=== PATIENT | female | born 1985 | race Caucasian/White ===

== ENCOUNTER 2017-02-25 22:37 | Emergency (ER) | payer BC ==
[~2017-02-25] VITALS: Ht 165.1 cm; Wt 113.4 kg
[2017-02-25 23:12] VITALS: BP 120/90
--- NOTE | 2017-02-25 23:13 | PHYS DOC ---
Past History Past Medical History prior ear infections Smoking: Non-smoker Adult General Chief Complaint Chief Complaint: EARACHE/EAR PAIN HPI HPI Patient is a 31 year old female who presents with persistent right ear pain, headache and nausea. She was diagnosed with an ear infection earlier and seen at [facility]. She was placed on amoxicillin "but that never works for me" . She has increased pain to the right ear; headache and now her right eye is "blurry". NO loss of vision or true double vision (she reported double vision initially to RN but in fact it is blurry; not true double). Some nausea; no cough. Review of Systems Review of Systems Constitutional: Denies fever or chills [] Eyes: Denies change in visual acuity, redness, or eye pain [] HENT: Denies nasal congestion or sore throat [] Respiratory: Denies cough or shortness of breath [] Cardiovascular: No additional information not addressed in HPI [] GI: Denies abdominal pain, nausea, vomiting, bloody stools or diarrhea [] : Denies dysuria or hematuria [] Musculoskeletal: Denies back pain or joint pain [] Integument: Denies rash or skin lesions [] Neurologic: Denies headache, focal weakness or sensory changes [] Endocrine: Denies polyuria or polydipsia [] Physical Exam Physical Exam Constitutional: Well developed, well nourished, no acute distress, non-toxic appearance. HENT: Normocephalic, atraumatic, bilateral external ears normal, Right TM dull with erythema (no bullae); left TM cleasr. oropharynx moist, no oral exudates, nose normal. No swelling of parotid gland. Eyes: PERRLA, EOMI, conjunctiva normal, no discharge. Neck: Normal range of motion, no tenderness, supple, no stridor. Cardiovascular:Heart rate regular rhythm, no murmur Lungs & Thorax: Bilateral breath sounds clear to auscultation Abdomen: Bowel sounds normal, soft, no tenderness, no masses, no pulsatile masses. Skin: Warm, dry, no erythema, no rash. Back: No tenderness, no CVA tenderness. Extremities: No tenderness, no cyanosis, no clubbing, ROM intact, no edema. Neurologic: Alert and oriented X 3, normal motor function, normal sensory function, no focal deficits noted. Psychologic: Affect normal, judgement normal, mood normal. Current Patient Data Vital Signs Vital Signs Date Time Temp Pulse Resp B/P (MAP) Pulse Ox O2 Delivery O2 Flow Rate FiO2 02/25/17 23:12 98.0 79 20 Room Air BP 120/90 Course & Med Decision Making Course & Med Decision Making Patient with worsening otitis media. She requested Azithromax and ear drops. Dosed here with Toradol IM; Decadron IM, zofran; azithromax and rx for floxin otic and naprosyn. She is to f/u with ENT. NO evidence of zoster. Dragon Disclaimer Dragon Disclaimer This chart was dictated in whole or in part using Voice Recognition software in a busy, high-work load, and often noisy Emergency Department environment. It may contain unintended and wholly unrecognized errors or omissions. Departure Departure: Disposition: 01 HOME, SELF-CARE Condition: GOOD Scripts Ofloxacin (Floxin) 10 Ml Drops 10 ML OT BID for 7 Days, DROP Prov: HEBER BUCKNER MD 02/25/17 Methylprednisolone (MEDROL) 4 Mg Tab.ds.pk 1 PKG PO UD, #1 PKG Prov: HEBER BUCKNER MD 02/25/17 Azithromycin (AZITHROMYCIN TABLET) 250 Mg Tablet 250 MG PO DAILY for ANTI-BIOTIC for 4 Days, #4 TAB 0 Refills Prov: HEBER BUCKNER MD 02/25/17 Ondansetron (ZOFRAN ODT) 8 Mg Tab.rapdis 8 MG PO TID PRN, #10 Prov: HEBER BUCKNER MD 02/25/17 HEBER BUCKNER MD February 25, 2017 23:13
[2017-02-25] MEDS ORDERED: ONDANSETRON ODT 4 MG TAB.RAPDIS PO ONE (23:15)
[2017-02-25] MEDS ORDERED: DEXAMETHASONE SOD PHOS 10 MG/ML VIAL IM ONE (23:15)
[2017-02-25] MEDS ORDERED: AZITHROMYCIN 250 MG TABLET. PO ONE (23:15)
[2017-02-25] MEDS ORDERED: KETOROLAC 60 MG/2 ML VIAL. IM ONE ×2 (23:15→23:26)
[2017-02-25] MEDS ORDERED: AZIT250T6 PO (23:16)
[2017-02-25] MEDS ORDERED: ONDA8TAB12 PO (23:16)
[2017-02-25] MEDS ORDERED: METH4TAB2 PO (23:16)
[2017-02-25] MEDS ORDERED: OFLO10DR21 OT (23:18)
[2017-02-25] MEDS ORDERED: DEXAMETHASONE SOD PHOS 10 MG/ML VIAL ONE (23:25)
[2017-02-25] MEDS ORDERED: AZITHROMYCIN 250 MG TABLET. ONE (23:26)
[2017-02-25] MEDS ORDERED: ONDANSETRON ODT 4 MG TAB.RAPDIS ONE (23:26)
== END 2017-02-25 23:35 | disposition home or self-care (01) ==
LOC: ER 22:37
DX: H66.91 Otitis media, unspecified, right ear (principal); R51 Headache; R11.0 Nausea
CPT/HCPCS: 96372; 99284; J0456; J1100; J1885; Q0162

== ENCOUNTER 2017-05-29 10:30 | Emergency (ER) | payer BC ==
[~2017-05-29] VITALS: Ht 165.1 cm; Wt 113.4 kg
[~2017-05-29 10:30] MED LIST: AZIT250T6 PO; METH4TAB2 PO; OFLO10DR21 OT; ONDA8TAB12 PO
[2017-05-29] MEDS ORDERED: IV NORMAL SALINE 1,000ML 1,000 ML IV SCH (10:52)
--- NOTE | 2017-05-29 10:58 | ED.ADGEN ---
Past History Past Medical History: No Pertinent History Past Surgical History: Smoking: Non-smoker Alcohol Use: None Drug Use: None Adult General HPI HPI Patient is a 31-year-old woman, history of PCOS, who presents to the emergency department with a complaint of sudden onset of dizziness, nausea, and vomiting . Patient denies abdominal pain or inciting symptoms, denies any sick contacts or travel. She states that she was feeling fine this morning, when about an hour ago she suddenly became extremely sick to her stomach, and has since vomited twice. Food and fluid, denies any diarrhea, any focal weakness, numbness , tingling, chest pain, shortness of breath. She is not taking anything for this prior to come to the ED. She describes dizziness as being more of a lightheadedness, or she feels like she might pass out but is had no syncopal be. Denies any swelling of the extremities, any rashes, any urinary complaints, although she states she has been experiencing low back pain since this started. It is equal on both sides, denies any injury. Review of Systems Review of Systems Constitutional: Denies fever or chills [] generalized malaise. Eyes: Denies change in visual acuity, redness, or eye pain [] HENT: Denies nasal congestion or sore throat [] Respiratory: Denies cough or shortness of breath [] Cardiovascular: No additional information not addressed in HPI [] GI: Denies abdominal pain, complaining of nausea, vomiting, no bloody stools or diarrhea. Last bowel was this morning and was normal. : Denies dysuria or hematuria [] Musculoskeletal: Lower back achiness, no joint pain. Integument: Denies rash or skin lesions [] Neurologic: Denies headache, focal weakness or sensory changes [] Endocrine: Denies polyuria or polydipsia [] Current Medications Current Medications Current Medications Medications (Trade) Dose Ordered Sig/[facility] Start Time Stop Time Status Last Admin Dose Admin Acetaminophen (Tylenol) 1,000 mg 1X ONCE 05/29/17 13:00 05/29/17 13:01 DC Ketorolac Tromethamine (Toradol) 10 mg 1X ONCE 05/29/17 13:00 05/29/17 13:01 DC Ondansetron HCl (Zofran) 4 mg 1X ONCE 05/29/17 11:20 05/29/17 11:21 DC 05/29/17 11:20 4 MG Sodium Chloride 1,000 ml @ 1,000 mls/hr Q1H 05/29/17 10:52 05/29/17 11:51 DC 05/29/17 11:15 1,000 MLS/HR Allergies Allergies Allergies Coded Allergies Type Severity Reaction Last Updated Verified hydrocodone Allergy Unknown Nausea and Vomiting 02/25/17 Yes Physical Exam Physical Exam Constitutional: Well developed, well nourished, no acute distress, pale, non- toxic appearance. [] HENT: Normocephalic, atraumatic, bilateral external ears normal, oropharynx moist, no oral exudates, nose normal. [] Eyes: PERRLA, EOMI, conjunctiva normal, no discharge. [] Neck: Normal range of motion, no tenderness, supple, no stridor. [] Cardiovascular:Heart rate regular rhythm, no murmur, S1, S2, no rubs or gallops. [] Lungs & Thorax: Bilateral breath sounds clear to auscultation, no wheezing, rhonchi, rales. No chest or crepitus or tenderness. [] Abdomen: Bowel sounds normal, soft, no tenderness, no rebound, rigidity, no guarding, no masses, no pulsatile masses. [] Skin: Warm, dry, no erythema, pale, no rash. [] Back: No tenderness, no CVA tenderness. [] Extremities: No tenderness, no cyanosis, no clubbing, ROM intact, no edema. Negative Homans sign. Neurologic: Alert and oriented X 3, normal motor function, normal sensory function, no focal deficits noted. [] Psychologic: Affect normal, judgement normal, mood normal. [] Current Patient Data Vital Signs Vital Signs Date Time Temp Pulse Resp B/P (MAP) Pulse Ox O2 Delivery O2 Flow Rate FiO2 05/29/17 12:40 97.9 76 18 135/71 (92) 99 Room Air Lab Results Laboratory Tests Test 05/29/17 10:55 05/29/17 11:13 05/29/17 11:15 Urine Collection Type Unknown Urine Color Alda Urine Clarity Hazy Urine pH 7.5 Urine Specific Worley 1.015 Urine Protein Neg (NEG-TRACE) Urine Glucose (UA) Neg mg/dL (NEG) Urine Ketones (Stick) Neg mg/dL (NEG) Urine Blood Trace (NEG) Urine Nitrite Neg (NEG) Urine Bilirubin Neg (NEG) Urine Urobilinogen Dipstick 0.2 mg/dL (0.2 mg/dL) Urine Leukocyte Esterase Neg (NEG) Urine RBC 1-2 /HPF (0-2) Urine WBC Occ /HPF (0-4) Urine Squamous Epithelial Cells Few /LPF Urine Bacteria Few /HPF (0-FEW) Urine Mucus Slight /LPF POC Urine HCG, Qualitative hcg negative (Negative) White Blood Count 8.0 x10^3/uL (4.0-11.0) Red Blood Count 5.31 x10^6/uL (3.50-5.40) Hemoglobin 14.8 g/dL (12.0-15.5) Hematocrit 44.0 % (36.0-47.0) Mean Corpuscular Volume 83 fL (79-100) Mean Corpuscular Hemoglobin 28 pg (25-35) Mean Corpuscular Hemoglobin Concent 34 g/dL (31-37) Red Cell Distribution Width 13.1 % (11.5-14.5) Platelet Count 281 x10^3/uL (140-400) Neutrophils (%) (Auto) 68 % (31-73) Lymphocytes (%) (Auto) 25 % (24-48) Monocytes (%) (Auto) 5 % (0-9) Eosinophils (%) (Auto) 1 % (0-3) Basophils (%) (Auto) 1 % (0-3) Neutrophils # (Auto) 5.5 x10^3uL (1.8-7.7) Lymphocytes # (Auto) 2.0 x10^3/uL (1.0-4.8) Monocytes # (Auto) 0.4 x10^3/uL (0.0-1.1) Eosinophils # (Auto) 0.1 x10^3/uL (0.0-0.7) Basophils # (Auto) 0.0 x10^3/uL (0.0-0.2) Sodium Level 143 mmol/L (136-145) Potassium Level 4.3 mmol/L (3.5-5.1) Chloride Level 107 mmol/L (98-107) Carbon Dioxide Level 29 mmol/L (21-32) Anion Gap 7 (6-14) Blood Urea Nitrogen 8 mg/dL (7-20) Creatinine 0.7 mg/dL (0.6-1.0) Estimated GFR (Cockcroft-Gault) 97.0 BUN/Creatinine Ratio 11 (6-20) Glucose Level 98 mg/dL (70-99) Calcium Level 8.6 mg/dL (8.5-10.1) Total Bilirubin 0.3 mg/dL (0.2-1.0) Aspartate Amino Transferase (AST) 16 U/L (15-37) Alanine Aminotransferase (ALT) 33 U/L (14-59) Alkaline Phosphatase 72 U/L (46-116) Total Protein 7.5 g/dL (6.4-8.2) Albumin 3.7 g/dL (3.4-5.0) Albumin/Globulin Ratio 1.0 (1.0-1.7) Lipase 167 U/L (73-393) EKG EKG EC: Sinus rhythm, heart rate 63 beats/minute, upright axis, QTC of 414, CT 142, QRS of 82, no ST elevations or depressions, no evidence of acute ST abnormalities. As interpreted by me. Radiology/Procedures Radiology/Procedures Not indicated. [] Course & Med Decision Making Course & Med Decision Making Pertinent Labs and Imaging studies reviewed. (See chart for details) Patient appears on comfortable, with pallor, nausea in the ED. Received IV fluids, antiemetics, and pain medication including Toradol and Tylenol. Nausea resolved after administration of Zofran, no further vomiting in the ED. Patient did develop a complaint of headache in the ED, and back pain as stated, both of which were improved significantly after administration of medications and IV fluids as stated. Laboratory studies not reveal any concerning findings, urinalysis was unremarkable. I did discuss findings with patient on reevaluation , patient is feeling better, and is rated go home, discussed use of Zofran, liquid diet to be advanced as tolerated, Bentyl as needed, as the patient may be experiencing a viral illness. Patient states that she is still having some headache, and believes that "I might be getting a migraine", at this time is agreeable plan to go home, to rest, to continue recommendations medications as stated, will return to the ED if any new or concerning symptoms develop. Patient ambulating without difficulty in the ED, exiting the ED with significant other. Final Impression Final Impression [] Problems: Kailash Disclaimer Dragon Disclaimer This electronic medical record was generated, in whole or in part, using a voice recognition dictation system. Departure: Impression: Primary Impression: Nausea and vomiting Disposition: HOME, SELF-CARE Condition: IMPROVED Scripts Dicyclomine Hcl (BENTYL) 10 Mg Capsule 1 CAP PO PRN TID Y for ABD CRAMPING, #12 CAP 0 Refills Prov: ODILIA CERVANTES DO 05/29/17 Ondansetron Hcl (ZOFRAN) 4 Mg Tablet 4 MG PO PRN Q6-8HRS Y for NAUSEA, #12 Prov: ODILIA CERVANTES DO 05/29/17 ODILIA CERVANTES DO May 29, 2017 10:58
[2017-05-29] MEDS ORDERED: ONDANSETRON PF 4 MG/2 ML VIAL. IV ONE (11:20)
[2017-05-29 11:23] LABS: BACTERIA,URINE FEW /HPF (0-FEW); BILIRUBIN,URINE NEG (NEG); CLARITY,URINE HAZY; COLOR,URINE AMBER; GLUCOSE,URINE NEG (NEG); NITRITE,URINE NEG (NEG); SQUAMOUS EPITHELIAL CELL,UR FEW /LPF; UROBILINOGEN,URINE 0.2 mg/dL (0.2 mg/dL); WBC,URINE OCC /HPF (0-4)
[2017-05-29 11:31] LABS: BASO % 1 % (0-3); EOS # 0.1 x10^3/uL (0.0-0.7); EOS % 1 % (0-3); HEMOGLOBIN 14.8 g/dL (12.0-15.5); LYMPH % 25 % (24-48); MEAN CORPUSCULAR HEMOGLOBIN 28 pg (25-35); MEAN CORPUSCULAR HGB CONC 34 g/dL (31-37); MEAN CORPUSCULAR VOLUME 83 fL (79-100); MONO # 0.4 x10^3/uL (0.0-1.1); MONO % 5 % (0-9); NEUT # 5.5 x10^3uL (1.8-7.7); NEUT % 68 % (31-73); PLATELET COUNT 281 x10^3/uL (140-400); RED BLOOD COUNT 5.31 x10^6/uL (3.50-5.40); RED CELL DISTRIBUTION WIDTH 13.1 % (11.5-14.5)
--- NOTE | 2017-05-29 11:35 | EKG ---
[address] [address] Test Date: 2017-05-29 Test Time: 11:04:54 Pat Name: ORA TSAI Department: Room: Gender: F Teradata Developer: ASTON : 1985 Requested By: ODILIA CERVANTES Order Number: [id number] Reading MD: Measurements Intervals Boley Rate: 63 P: 23 MO: 142 QRS: 13 QRSD: 92 T: 20 QT: 402 QTc: 414 Interpretive Statements SINUS RHYTHM QRS(T) CONTOUR ABNORMALITY CONSIDER ANTEROSEPTAL MYOCARDIAL DAMAGE RI6.01 Unconfirmed report No previous ECG available for comparison
[2017-05-29 11:45] LABS: ALBUMIN 3.7 g/dL (3.4-5.0); CALCIUM 8.6 mg/dL (8.5-10.1); CREATININE 0.7 mg/dL (0.6-1.0); POTASSIUM 4.3 mmol/L (3.5-5.1); TOTAL BILIRUBIN 0.3 mg/dL (0.2-1.0); TOTAL PROTEIN 7.5 g/dL (6.4-8.2)
[2017-05-29] MEDS ORDERED: KETOROLAC 30 MG/ML VIAL. IV ONE (13:00)
[2017-05-29] MEDS ORDERED: ACETAMINOPHEN 500 MG TABLET PO ONE (13:00)
[2017-05-29] MEDS ORDERED: ONDA4TAB7 PO (13:08)
[2017-05-29] MEDS ORDERED: DICY10CA53 PO (13:08)
[2017-05-29 13:10] VITALS: BP 130/59
== END 2017-05-29 13:20 | disposition home or self-care (01) ==
LOC: ER 10:30
DX: R11.2 Nausea with vomiting, unspecified (principal); R42 Dizziness and giddiness; M54.5 Low back pain
CPT/HCPCS: 36415; 80053; 81001; 81025; 83690; 85025; 93005; 96361; 96374; 96375; 99285; J1885; J2405; J7030

== ENCOUNTER 2017-09-18 19:23 | Emergency (ER) | payer BC ==
[~2017-09-18] VITALS: Ht 165.1 cm; Wt 117.9 kg
[~2017-09-18 19:23] MED LIST changes: +DICY10CA53 PO; +ONDA4TAB7 PO
[2017-09-18 19:52] VITALS: BP 141/83
[2017-09-18] MEDS ORDERED: KETOROLAC 30 MG/ML VIAL. IV ONE (20:15)
[2017-09-18 20:45] LABS: BASO # 0.1 x10^3/uL (0.0-0.2); BASO % 1 % (0-3); EOS # 0.2 x10^3/uL (0.0-0.7); EOS % 2 % (0-3); HEMATOCRIT 40.7 % (36.0-47.0); HEMOGLOBIN 13.7 g/dL (12.0-15.5); LYMPH # 3.1 x10^3/uL (1.0-4.8); LYMPH % 33 % (24-48); MEAN CORPUSCULAR HEMOGLOBIN 28 pg (25-35); MEAN CORPUSCULAR HGB CONC 34 g/dL (31-37); MEAN CORPUSCULAR VOLUME 82 fL (79-100); MONO # 0.4 x10^3/uL (0.0-1.1); MONO % 4 % (0-9); NEUT # 5.8 x10^3uL (1.8-7.7); NEUT % 61 % (31-73); PLATELET COUNT 281 x10^3/uL (140-400); RED BLOOD COUNT 4.95 x10^6/uL (3.50-5.40); WHITE BLOOD COUNT 9.5 x10^3/uL (4.0-11.0)
[2017-09-18] MEDS ORDERED: MORPHINE SULFATE 5 MG/ML SYRINGE. ONE (21:50)
[2017-09-18] MEDS ORDERED: MORPHINE SULFATE 5 MG/ML SYRINGE. IV ONE (22:00)
--- NOTE | 2017-09-18 22:51 | RAD ---
Ultrasound pelvis complete 09/18/2017 CLINICAL INDICATION: Dysfunctional uterine bleeding. COMPARISON: None. TECHNIQUE: Transabdominal and transvaginal images were performed. FINDINGS: There are multiple cervical nabothian cysts. Uterus measures 10.2 x 4.1 x 5.0 cm. No discrete myometrial mass lesion identified. Dual thickness endometrium is 15 mm. No abnormal endometrial blood flow identified. The right ovary measures 2.9 x 3.5 x 2.7 cm. Normal color Doppler imaging of the right ovary. The left ovary measures 3.5 x 2.4 x 2.8 cm with normal color Doppler imaging. There is no significant pelvic free fluid. IMPRESSION: 1. Upper limits of normal endometrial thickening, which may be due to phase of menstrual cycle. Follow-up ultrasound is recommended. 2. No ovarian torsion. Electronically signed by: George Bailey MD (09/18/2017 10:48 PM) [facility]
--- NOTE | 2017-09-18 23:01 | PHYS DOC ---
General Chief Complaint: VAGINAL PROBLEM Stated Complaint: VAGINAL BLEEDING Time Seen by MD: 19:26 Source: patient Exam Limitations: no limitations Problems: History of Present Illness Initial Comments Patient is a 31-year-old female complaining of vaginal bleeding. Patient states that her current menstrual period started August 18, states she' s been bleeding fairly consistently since that time. She states she is having lower abdominal and low back cramping, earlier today she says she had a headache and dizzy spell. She's been feeling weak she says her periods are normally regular and not nearly as intense. She denies any trauma denies possibility of she is accompanied by her spouse. She states she's been passing large clots and soaking through her pads going through to an hour earlier today however has slowed down on arrival. ED vital signs are stable Timing/Duration: other Severity: severe Modifying Factors: improves with other Associated Symptoms: other Allergies: Coded Allergies: hydrocodone (Verified Allergy, Mild, Nausea and Vomiting, 09/18/17) Past Medical History Medical History: other (polycystic ovarian syndrome, migraines) Surgical History: other (herniorrhaphy) Social History Smoker: non-smoker Alcohol: none Drugs: none Review of Systems Constitutional: denies chills, denies diaphoresis, denies fever, malaise, weakness Respiratory: denies cough, denies shortness of breath, denies wheezing Cardiovascular: denies chest pain, denies palpitations, denies syncope Gastrointestinal: see HPI, denies diarrhea, denies nausea, denies vomiting Genitourinary: see HPI, denies dysuria, denies frequency, denies hematuria Musculoskeletal: see HPI, denies joint swelling, denies neck pain Psychiatric/Neurological: see HPI Hematologic/Lymphatic: see HPI Physical Exam General Appearance: mild distress, obese Eyes: bilateral eye normal inspection, bilateral eye PERRL, bilateral eye EOMI Ear, Nose, Throat: hearing grossly normal, normal ENT inspection, normal pharynx Neck: non-tender, supple Respiratory: normal breath sounds, no respiratory distress Cardiovascular: normal peripheral pulses, regular rate, rhythm Gastrointestinal: normal bowel sounds, non tender, soft Back: no CVA tenderness, no vertebral tenderness Extremities: non-tender Neurologic/Psychiatric: avionics manager II-XII nml as tested, no motor/sensory deficits, alert, normal mood/affect, oriented x 3 Skin: normal color, warm/dry Orders, Labs, Meds PATIENT: ORA TSAI ACCOUNT: [id number] : 1985 LOCATION: ER AGE: 31 SEX: F EXAM STATUS: REG ER ORD. PHYSICIAN: KAYDEN JULES DO REASON: PCOS, having DUB PROCEDURE: PELVIS COMPLETE Ultrasound pelvis complete 09/18/2017 CLINICAL INDICATION: Dysfunctional uterine bleeding. COMPARISON: None. TECHNIQUE: Transabdominal and transvaginal images were performed. FINDINGS: There are multiple cervical nabothian cysts. Uterus measures 10.2 x 4.1 x 5.0 cm. No discrete myometrial mass lesion identified. Dual thickness endometrium is 15 mm. No abnormal endometrial blood flow identified. The right ovary measures 2.9 x 3.5 x 2.7 cm. Normal color Doppler imaging of the right ovary. The left ovary measures 3.5 x 2.4 x 2.8 cm with normal color Doppler imaging. There is no significant pelvic free fluid. IMPRESSION: 1. Upper limits of normal endometrial thickening, which may be due to phase of menstrual cycle. Follow-up ultrasound is recommended. 2. No ovarian torsion. Electronically signed by: Ty Bailey MD (09/18/2017 10:48 PM) [facility] DICTATED AND SIGNED BY: TY BAILEY MD DATE: 09/18/172242 CC: PCP,BERTRAND; KAYDEN JULES DO ~ Hemoglobin stable. I discussed findings with the patient as well as treatment options. It is at this point that the patient states she called her network control technician and talked to the on-call doctor. She had previously reported that she had not been able to reach them, she reveals that control has been called in for her to start tomorrow she was advised to take 3 tomorrow and then 1 daily. I discussed signs and symptoms to monitor as well as indications for urgent return, advised her to follow her doctor's instructions she expressed agreement and understanding with treatment plan. Departure Time of Disposition: 23:09 Disposition: 01 HOME, SELF-CARE Diagnosis: menorrhagia Condition: STABLE Patient Instructions: Menorrhagia, [id number] Additional Instructions: No driving or operating machinery while under the influence of sedative medications. Start taking the control tomorrow which was called in by your network control technician to control bleeding. A Tylenol 3 starter pack was dispensed to you in the ED tonight, take one every 6 hours as needed for severe pain. Take the medication with food to avoid nausea vomiting. Follow-up with your network control technician as directed. Return to ED with new or changing symptoms. KAYDEN JULES DO Sep 18, 2017 23:01
[2017-09-18] MEDS ORDERED: ACETAMINOPHEN/CODEINE 300/30MG 4TABLET STARTPACK. PO ONE (23:30)
== END 2017-09-18 23:24 | disposition home or self-care (01) ==
LOC: ER 19:23
DX: N92.0 Excessive and frequent menstruation with regular cycle (principal); E28.2 Polycystic ovarian syndrome; G43.909 Migraine, unspecified, not intractable, without status migrainosus; Z88.5 Allergy status to narcotic agent
CPT/HCPCS: 36415; 76856; 81025; 85025; 96374; 96375; 99285; J1885; J2270

== ENCOUNTER 2020-12-02 14:29 | Emergency (ER) | payer BC ==
[~2020-12-02] VITALS: Ht 165.1 cm; Wt 115.9 kg
[2020-12-02 14:31] VITALS: BP 129/87
[2020-12-02] MEDS ORDERED: METOCLOPRAMIDE HCL 10 MG/2 ML VIAL. IVP ONE (14:45)
[2020-12-02] MEDS ORDERED: diphenhydrAMINE 50 MG/ML VIAL IVP ONE (14:45)
--- NOTE | 2020-12-02 14:47 | PHYS DOC ---
Past History Past Medical History: Migraines, Other Past Surgical History: Smoking: Non-smoker Alcohol Use: None Drug Use: None Adult General Chief Complaint Chief Complaint: CHEST WALL PAIN HPI HPI Patient is a 35F who denies any significant past history presents emergency department for new onset of chest pain flulike illness. Patient reports he was tested positive for COVID-19 7 days ago. Patient states that since that time she has been noting worsening sensation of neck pain, general fatigue, fever and sensation of chest pain primarily when she takes deep breath. Patient states that last night she had an episode of shortness of breath when she was sleeping woke up with difficulty breathing. States that since that time she been having new onset of left anterior chest pain which is primarily when she breathes and feels like it is on the inside. Not on associated with exertion. Denies any recent fevers Review of Systems Review of Systems Constitutional: Denies fever or chills [] Eyes: Denies change in visual acuity, redness, or eye pain [] HENT: Denies nasal congestion or sore throat [] Respiratory: Denies cough or shortness of breath [] Cardiovascular: No additional information not addressed in HPI [] GI: Denies abdominal pain, nausea, vomiting, bloody stools or diarrhea [] : Denies dysuria or hematuria [] Musculoskeletal: Denies back pain or joint pain [] Integument: Denies rash or skin lesions [] Neurologic: Denies headache, focal weakness or sensory changes [] Endocrine: Denies polyuria or polydipsia [] All other systems were reviewed and found to be within normal limits, except as documented in this note. Allergies Allergies Allergies Coded Allergies Type Severity Reaction Last Updated Verified hydrocodone Allergy Mild Nausea and Vomiting 09/18/17 Yes Physical Exam Physical Exam Constitutional: Well developed, well nourished, no acute distress, non-toxic appearance. [] HENT: Normocephalic, atraumatic, bilateral external ears normal, oropharynx moist, no oral exudates, nose normal. [] Eyes: PERRLA, EOMI, conjunctiva normal, no discharge. [] Neck: Normal range of motion, no tenderness, supple, no stridor. [] Cardiovascular:Heart rate regular rhythm, no murmur [] Lungs & Thorax: Bilateral breath sounds clear to auscultation [] Abdomen: Bowel sounds normal, soft, no tenderness, no masses, no pulsatile masses. [] Skin: Warm, dry, no erythema, no rash. [] Back: No tenderness, no CVA tenderness. [] Extremities: No tenderness, no cyanosis, no clubbing, ROM intact, no edema. [] Neurologic: Alert and oriented X 3, normal motor function, normal sensory function, no focal deficits noted. [] Psychologic: Affect normal, judgement normal, mood normal. [] EKG EKG [] Radiology/Procedures Radiology/Procedures [] Heart Score Risk Factors: Risk Factors: DM, Current or recent (<one month) smoker, HTN, HLP, family history of CAD, obesity. Risk Scores: Risk Factors: DM, Current or recent (<one month) smoker, HTN, HLP, family history of CAD, obesity. Course & Med Decision Making Course & Med Decision Making Pertinent Labs and Imaging studies reviewed. (See chart for details) 35F presenting the emergency department complaining of new onset of chest pain as well as flulike syndrome. Will obtain a chest x-ray to make sure there is no evidence of underlying pneumonia and treat the patient for stated migraines. Chest x-ray does demonstrate what appears to be some consolidation in the right lower lobe which is raising concern for bacterial pneumonia. Will discharge patient home with a course of antibiotics Kailash Disclaimer Kailash Disclaimer This electronic medical record was generated, in whole or in part, using a voice recognition dictation system. Departure Departure: Impression: Primary Impression: Viral syndrome Additional Impressions: Pneumonia Migraine Disposition: 01 DC HOME SELF CARE/HOMELESS Condition: GOOD Referrals: OLIMPIA MONET MD Patient Instructions: Pneumonia, Adult Additional Instructions: EMERGENCY DEPARTMENT GENERAL DISCHARGE INSTRUCTIONS Thank you for coming to [facility] Emergency Department (ED) today and trusting us with you care. We trust that you had a positive experience in our Emergency Department. If you wish to speak to the department management, you may call the Director at [phone]. YOUR FOLLOW UP INSTRUCTIONS ARE FOLLOWS: 1. Do you have a private Doctor? If you do not have a private doctor, please ask for a resource list of physicians or clinics that may be able to assist you with follow up care. 2. The Emergency Physicain has interpreted your x-rays. The X-Ray specialist will also review them. If there is a change in the findings, you will be notified in 48 hours when at all possible. 3. A lab test or culture has been done, your results will be reviewed and you will be notified if you need a change in treatment. ADDITIONAL INSTRUCTIONS AND INFORMATION: 1. Your care today has been supervised by a physician who is specially trained in emergency care. Many problems require more than one evaluation for a complete diagnosis and treatment. We recommend that you schedule your follow up appointment as recommended to ensure complete treatment of you illness or injury. If you are unable to obtain follow up care and continue to have a problem, or if your condition worsens, we recommend that you return to the ED. 2. We are not able to safely determine your condition over the phone nor are we able to give sound medical advice over the phone. For these safety reasons, if you call for medical advice we will ask you to come to the ED for further evaluation. 3. If you have any questions regarding these discharge instructions please call the ED at [phone]. SAFETY INFORMATION: In the interest of safety, wellness, and injury prevention; we encourage you to wear your sealbelt, if you smoke; quite smoking, and we encourage family to use a protective helmet for bicycling and other sporting events that present an increased risk for head injury. IF YOUR SYMPTOMS WORSEN OR NEW SYMPTOMS DEVELOP, OR YOU HAVE CONCERNS ABOUT YOUR CONDITION; OR IF YOUR CONDITION WORSENS WHILE YOU ARE WAITING FOR YOUR FOLLOW UP APPOINTMENT; EITHER CONTACT YOUR PRIMARY CARE DOCTOR, THE PHYSICIAN WHOSE NAME AND NUMBER YOU WERE GIVEN, OR RETURN TO THE ED IMMEDIATELY. Scripts Azithromycin (ZITHROMAX) 250 Mg Tablet 1 PKG PO UD for pneumonia, #6 TAB Prov: NATALY JOHNSON MD 12/02/20 Problem Qualifiers NATALY JOHNSON MD Dec 02, 2020 14:47
--- NOTE | 2020-12-02 15:36 | EKG ---
[address] [address] Test Date: 2020-12-02 Test Time: 14:53:27 Pat Name: ORA TSAI Department: Room: Gender: F Manager Outpatient: : [id number] Requested By: NATALY JOHNSON Order Number: [id number] Reading MD: Measurements Intervals [place] Rate: 87 P: 24 VA: 140 QRS: 0 QRSD: 82 T: 17 QT: 334 QTc: 407 Interpretive Statements SINUS RHYTHM LEFTWARD AXIS OTHERWISE NORMAL ECG RI6.02 No previous ECG available for comparison
--- NOTE | 2020-12-02 16:01 | RAD ---
EXAMINATION: XR CHEST 1V CLINICAL HISTORY: Chest pain, covid EXAM DATE/TIME: 12/02/2020 2:46 PM COMPARISON: None FINDINGS: Lines, Tubes, and Devices: None. Cardiomediastinal Silhouette: Within normal limits. Lungs and Pleura: Mild patchy opacity in the right midlung zone projected over the anterior second ri b. No evidence of focal airspace consolidation or pleural effusion. Pulmonary vasculature unremarkabl e. Bones and Soft Tissues: No acute osseous abnormality. IMPRESSION: Mild patchy opacity in the right midlung zone, nonspecific but could represent early infectious proce ss. There is otherwise no evidence of acute cardiopulmonary abnormality. Electronically signed by: Jayson Mello DO (12/02/2020 3:58 PM) [facility]
[2020-12-02] MEDS ORDERED: AZIT250T PO (16:19)
[2020-12-02] MEDS ORDERED: AZITHROMYCIN 250 MG TABLET. PO ONE (16:30)
== END 2020-12-02 16:30 | disposition home or self-care (01) ==
LOC: ER 14:29
DX: J18.9 Pneumonia, unspecified organism (principal); B34.9 Viral infection, unspecified; G43.909 Migraine, unspecified, not intractable, without status migrainosus; Z88.5 Allergy status to narcotic agent
CPT/HCPCS: 71045; 93005; 96374; 96375; 99284; J1200; J2765